=== PATIENT | male | born 1965 | race Two or more races ===

== ENCOUNTER 2021-05-28 10:25 | Emergency (ER) | payer MEDICAID ==
[~2021-05-28] VITALS: Ht 175.3 cm; Wt 109.0 kg
[2021-05-28] MEDS ORDERED: ONDANSETRON 2MG/ML, 2ML ONE (10:42)
[2021-05-28] MEDS ORDERED: ACETAMINOPHEN 500 MG TABLET ONE (10:42)
[2021-05-28] MEDS ORDERED: ONDANSETRON 2MG/ML, 2ML IVPush ONE (11:00)
[2021-05-28] MEDS ORDERED: ACETAMINOPHEN 500 MG TABLET PO ONE (11:00)
[2021-05-28 11:09] LABS: BASOPHILS % (AUTO) 0 % (0-1); EOSINOPHILS % (AUTO) 1 % (1-7); LYMPHOCYTES % (AUTO) 6 % (22-44); MEAN CORPUSCULAR HEMOGLOBIN 28.9 pg (27.5-34.5); MEAN CORPUSCULAR HGB CONC 33.4 g/dL (33.2-36.2); MEAN PLATELET VOLUME 8.5 fL (7.4-10.4); MONOCYTES % (AUTO) 8 % (2-9); NEUTROPHILS % (AUTO) 84 % (42-75); PLATELET COUNT 132 x10^3/uL (130-400); RED BLOOD COUNT 4.35 x10^6/uL (4.38-5.82); RED CELL DISTRIBUTION WIDTH 14.1 % (9.4-14.8)
[2021-05-28 11:19] LABS: ALANINE AMINOTRANSFERASE 83 U/L (12-78); ALBUMIN 2.5 g/dL (3.4-5.0); ANION GAP 10 mmol/L (5-15); CALCIUM 8.5 mg/dL (8.5-10.1); CHLORIDE 110 mmol/L (98-107); CREATININE 2.47 mg/dL (0.7-1.3)
[2021-05-28 11:21] LABS: ALKALINE PHOSPHATASE 179 U/L (45-117); BILIRUBIN,TOTAL 1.7 mg/dL (0.2-1.0)
--- NOTE | 2021-05-28 12:15 | NUR ---
NURSE PARALEGAL WOKE UP THIS MORNING AT 0800 WITH FEVER AND N/V. HX DM II EMS REPORTS BS 127 WAS GIVEN 4 PO ZOFRAN. PT IN BED IN GOWN WITH CONT [facility] SOLUTION ARCHITECT, SPO2, BP , Q 30 MIN, SIDE RAILS UP X2. PT SLEEPING RR EVEN AND UNLABORED. NAD
[2021-05-28] MEDS ORDERED: SODIUM CHLORIDE 0.9% 1,000ML IVBOLUS ONE (14:00)
--- NOTE | 2021-05-28 15:16 | NUR ---
Gave report to David Jhaveri RN
[2021-05-28 16:25] LABS: MICROSCOPIC INDICATED
[2021-05-28] MEDS ORDERED: IBUPROFEN 200 MG TABLET PO ONE (18:30)
[2021-05-28] MEDS ORDERED: CEFTRIAXONE 1,000 MG in DEXTROSE 5% 50 ML IVPB ONE (18:30)
[2021-05-28] MEDS ORDERED: IBUPROFEN 600 MG TABLET ONE (18:38)
[2021-05-28 19:01] VITALS: BP 142/73
[2021-05-30] MEDS ORDERED: NPH,100V SQ (12:52)
[2021-05-30] MEDS ORDERED: NITR0.4T28 SL (12:52)
[2021-05-30] MEDS ORDERED: TORS5TAB4 PO (12:52)
[2021-05-30] MEDS ORDERED: SPIR25TA5 PO (12:52)
[2021-05-30] MEDS ORDERED: INSU100I11 SQ (12:52)
[2021-05-30] MEDS ORDERED: LOSA100T14 PO (12:52)
[2021-05-30] MEDS ORDERED: ASPI81TA45 PO (12:52)
[2021-05-30] MEDS ORDERED: BISO5TAB8 PO (12:52)
[2021-05-30] MEDS ORDERED: ATOR40TA78 PO (12:52)
[2021-06-03] MEDS ORDERED: SODI650T PO (07:41)
[2021-06-03] MEDS ORDERED: FERR-36 PO (07:41)
[2021-06-03] MEDS ORDERED: CHOL10003 PO (07:41)
[2021-06-03] MEDS ORDERED: INSU100I13 SQ-INSULIN (07:41)
[2021-06-03] MEDS ORDERED: INSU100I11 SQ-INSULIN (07:41)
[2021-06-03] MEDS ORDERED: CLOP75TA PO (07:41)
[2021-06-03] MEDS ORDERED: CEPH500T PO (10:28)
== END 2021-05-28 19:24 | disposition home or self-care (01) ==
LOC: ED 14:01
DX: R51.9 Headache, unspecified (principal); Z20.822 Contact with and (suspected) exposure to COVID-19; E86.0 Dehydration; N17.9 Acute kidney failure, unspecified; R78.81 Bacteremia; R42 Dizziness and giddiness; R63.0 Anorexia; Z68.35 Body mass index [BMI] 35.0-35.9, adult
CPT/HCPCS: 36415; 71045; 80053; 81001; 83605; 85025; 87040; 93005; 96361; 96365; 96375; 99285; J0696; J2405; J7030; U0003; U0005; 87147; 87181